=== PATIENT | male | born 1965 | race Caucasian/White ===

== ENCOUNTER 2018-07-08 08:57 | Outpatient (CLI) | payer OTHER, SELFPAY ==
[2018-07-08 10:08] LABS: ALT 52 U/L (12-78); AST 27 U/L (15-37); Albumin 3.9 g/dL (3.4-5.0); Alkaline Phosphatase 61 U/L (46-116); Anion Gap 10.4 mmol/L (3-11); BUN 15 mg/dL (7-18); Bilirubin, Total 0.6 mg/dL (0.2-1.0); CO2 28.6 mmol/L (21.0-32.0); CREATININE 1.19 mg/dL (0.70-1.30); Calcium 8.9 mg/dL (8.5-10.1); Chloride 102 mmol/L (98-107); Glucose 131 mg/dL (70-100); Sodium 141 mmol/L (136-145)
[2018-07-08 10:21] LABS: TSH (W/Ref FT4) 2.92 uIU/mL (0.358-3.74)
== END 2018-07-08 09:17 ==
PROVIDERS: PCP Family Medicine; Visit Provider Family Medicine
DX: R60.9 Edema, unspecified (principal)
CPT/HCPCS: 36415; 80053; 84443

== ENCOUNTER 2018-09-19 09:24 | Emergency (ER) | payer OTHER, SELFPAY ==
[2018-09-19 09:31] VITALS: BP 150/101; PULSE 111; RESP 18; TEMP 36.6; O2SAT 95
[2018-09-19 10:35] LABS: Bilirubin Negative (Negative); Blood Trace-lysed (Negative); Clarity Clear; Glucose Negative (Negative); Ketones Negative (Negative); Leukocyte Esterase Negative (Negative); Nitrite Negative (Negative); Specific Gravity 1.025 (1.005-1.025); Urobilinogen 0.2 EU/dL (Up TO 0.2); pH 5.5 (5-8)
--- NOTE | 2018-09-19 10:41 | DI.CT_ITS ---
SYMPTOMS/DIAGNOSIS: DIFFUSE PAIN, BLEEDING FROM UMBILICUS, S/P FALL ON BELLY, ? ACUTE ABD INJURY CT SCAN OF THE ABDOMEN AND PELVIS: CT scan of the abdomen and pelvis was performed following the uneventful administration of intravenous contrast material. The patient received 50 milligrams of Diphenhydramine one hour prior to examination according to protocol. No acute findings are seen in the lung bases. There is diffuse decreased density of the liver consistent with fatty infiltration. No suspicious hepatic mass is seen. The portal, superior mesenteric and splenic veins are patent. The patient is status post cholecystectomy. There is no biliary ductal dilatation. The pancreas and adrenal glands are unremarkable. The spleen has a normal appearance. Note is made of an accessory spleen. The kidneys show normal and symmetric enhancement. No solid renal mass or obstruction is identified. The urinary bladder is intact. The reproductive organs are unremarkable. The bowel shows no evidence of obstruction or inflammation. There is diverticulosis of the colon but no evidence of acute diverticulitis. No findings to suggest an acute appendicitis are present. The abdominal aorta is of normal caliber. No significant abdominal or pelvic adenopathy, ascites or pneumoperitoneum is present. There is a small fat containing supraumbilical anterior abdominal wall hernia. The umbilicus appears unremarkable. No evidence of an anterior abdominal wall injury is identified. No acute findings are seen in the bones. IMPRESSION: 1. No acute anterior abdominal wall injury. No evidence of an anterior abdominal wall fluid collection or mass. 2. Small fat containing supraumbilical anterior abdominal wall hernia. 3. No evidence of an acute intra-abdominal injury or abnormality. The findings were discussed with the emergency department on the date of the examination.
--- NOTE | 2018-09-19 10:44 | ED.GENADUL_ITS ---
Discharge Plan Disposition Patient Disposition: HOME Condition: Stable Discharge Details Chief Complaint: Abd Prob Clinical Impression: Wound, open, abdominal wall, anterior, Abdominal pain, Fall Primary Care Provider: Brennan Astudillo ED Provider: Julianna Crenshaw Home Meds and New Rx's Prescriptions: No Action hydrochlorothiazide 25 mg tablet 25 mg PO DAILY Qty: 30 RF: 3 losartan 25 mg tablet 25 mg PO DAILY Qty: 60 RF: 3 Discharge Instructions Instructions: Acute Wound Care (ED), Abdominal Pain (ED) Additional Instructions: Keep wounds on her abdomen clean dry and intact. Apply Neosporin to the wounds 1-2 times daily. Alternate Tylenol and Motrin as needed and directed for pain. Follow-up with your primary care doctor in 1 week for wound check. Return immediately to the emergency department any worsening or new concerning symptoms. Discharge Data Discharge Date/Time-TO BE ENTERED AT DEPARTURE: 09/19/18 13:50 Discharge Physician: Julianna Crenshaw Medical Decision Making 52-year-old male who presents with abdominal pain and serous drainage from umbilicus status post 2 falls since yesterday in which he fell directly onto his belly onto the ice. No fever, vomiting, diarrhea. Heart rate tachycardic. Blood pressure hypertensive. Afebrile. Patient appears nontoxic. His abdomen is soft and nontender but he has pain with m ovement and palpation to superficial umbilicus. He has a 0.5 cm skin tear noted near the umbilicus as well as a linear superficial laceration just below the umbilicus. No acute signs of superficial infection. Suspect possibly superficial injury, but will obtain a CT abdomen to assess for abdominal injury. Patient has an allergy to IV dye which causes hives but no respiratory symptoms. Patient states he has received pretreatment with Benadryl in the past. Will place an IV, labs, fluids, IV Benadryl, IV Solu-Medrol. Pretreatment was discussed with radiology. Patient is declining pain medication at this time. 1315 --labs reviewed and unremarkable. CT imaging negative for abscess or other intra-abdominal process. It appears his serous drainage are from superficial skin wound. Patient has abdominal pain with movement and while moving positions, so I suspect it is more musculoskeletal from blunt injury from fall. Tetanus up-to-date 2015. Patient feels much better and is able to tolerate p.o. and is requesting to go home. Patient instructed on wound care to abdominal wound, Motrin and Tylenol, as well as ice. Instructed to follow with primary care doctor for reevaluation and to return here at any time if worse. Medical Records Medical records reviewed: Yes I reviewed the patient's medical records. Imaging Data Radiologic Study: Radiologist's impression: CT SCAN OF THE ABDOMEN AND PELVIS: CT scan of the abdomen and pelvis was performed following the uneventful administration of intravenous contrast material. The patient received 50 milligrams of Diphenhydramine one hour prior to examination according to protocol. No acute findings are seen in the lung bases. There is diffuse decreased density of the liver consistent with fatty infiltration. No suspicious hepatic mass is seen. The portal, superior mesenteric and splenic veins are patent. The patient is status post cholecystectomy. There is no biliary ductal dilatation. The pancreas and adrenal glands are unremarkable. The spleen has a normal appearance. Note is made of an accessory spleen. The kidneys show normal and symmetric enhancement. No solid renal mass or obstruction is identified. The urinary bladder is intact. The reproductive organs are unremarkable. The bowel shows no evidence of obstruction or inflammation. There is diverticulosis of the colon but no evidence of acute diverticulitis. No findings to suggest an acute appendicitis are present. The abdominal aorta is of normal caliber. No significant abdominal or pelvic adenopathy, ascites or pneumoperitoneum is present. There is a small fat containing supraumbilical anterior abdominal wall hernia. The umbilicus appears unremarkable. No evidence of an anterior abdominal wall injury is identified. No acute findings are seen in the bones. IMPRESSION: 1. No acute anterior abdominal wall injury. No evidence of an anterior abdominal wall fluid collection or mass. 2. Small fat containing supraumbilical anterior abdominal wall hernia. 3. No evidence of an acute intra-abdominal injury or abnormality. Lab Data Lab results reviewed: Yes I reviewed the patient's lab results. Laboratory Tests Range/Units 09/19/18 09/19/18 09/19/18 10:28 11:00 11:00 WBC (4.4-10.8) k/cumm 6.36 RBC (4.50-6.00) m/cumm 4.81 Hgb (13.5-17.5) g/dL 15.1 Hct (40.0-50.0) % 43.6 MCV (80-95) fL 90.6 MCH (27.0-33.0) pg 31.4 MCHC (32.0-36.0) g/dL 34.6 RDW (11.8-14.1) % 13.4 Plt Count (130-400) x1000/uL 220 MPV (8.0-11.0) fL 9.9 Immature Gran % 0.6 Neutrophils % 64.8 Lymphocytes % 23.6 Monocytes % 9.9 Eosinophils % 0.8 Basophils % 0.3 Absolute Neutrophils (1.2-6.7) k/cumm 4.12 Absolute Lymphocytes (1.2-3.4) k/cumm 1.50 Absolute Monocytes (0.11-0.7) k/cumm 0.63 Absolute Eosinophils (0.0-0.7) k/cumm 0.05 Absolute Basophils (0.0-0.2) k/cumm 0.02 Sodium (136-145) mmol/L 140 Potassium (3.5-5.1) mmol/L 4.1 Chloride (98-107) mmol/L 101 Carbon Dioxide (21.0-32.0) mmol/L 30.0 Anion Gap (3-11) mmol/L 9.0 BUN (7-18) mg/dL 19 H Creatinine (0.70-1.30) mg/dL 1.16 Estimated GFR/1.73 m2 (mL/min/1.73m2) >= 60.00 Glucose (70-100) mg/dL 119 H Calcium (8.5-10.1) mg/dL 9.0 Total Bilirubin (0.2-1.0) mg/dL 0.4 AST (15-37) U/L 33 ALT (12-78) U/L 65 Alkaline Phosphatase (46-116) U/L 53 Total Protein (6.4-8.2) g/dL 7.5 Albumin (3.4-5.0) g/dL 3.8 Lipase (73-393) U/L 85 Urine Color (Yellow) Yellow Urine Clarity Clear Urine pH (5-8) 5.5 Ur Specific [place] (1.005-1.025) 1.025 Urine Protein (Negative) mg/dL Negative Urine Ketones (Negative) mg/dL Negative Urine Blood (Negative) Trace-lysed H Urine Nitrite (Negative) Negative Urine Bilirubin (Negative) Negative Urine Urobilinogen (Up TO 0.2) EU/dL 0.2 Ur Leukocyte Esterase (Negative) Negative Urine RBC (0-2) 0-2 Urine WBC (0-5) HPF 0-2 Ur Epithelial Cells (Negative) HPF Negative Urine Crystals (Negative) HPF Negative Urine Bacteria (Negative) HPF Rare Urine Casts (Negative) LPF Negative Urine Mucus (Negative) Negative Urine Other (Negative) Negative Ur Culture Indicated? No Urine Glucose (Negative) mg/dL Negative HPI General Mode of arrival: ambulatory . Date/Time Provider Initiated Documentation: 09/19/18 09:43 . Limitations to Documentation: no limitations . Information obtained by: patient . HPI Narrative: Patient is a 52-year-old male presents with abdominal pain and serous drainage from umbilicus status post 2 falls since last night. Patient states he was carrying kerosene last night when he tripped and fell and hit his abdomen directly onto the ice. Patient states he had another fall today in which she fell again directly onto his belly. Patient states since last night's fall, he developed umbilical abdominal pain with clear drainage from the umbilicus which then developed into bloody drainage. Patient states the drainage and belly pain has become worse since second fall this morning. Patient denies any fever, nausea, vomiting, diarrhea or urinary symptoms. He has not taken any medication for pain. Patient has a history of appendectomy, cholecystectomy and hernia repair x2 but states last surgery was 12 years ago. Related Data Home Medications Medication Instructions Recorded Confirmed hydrochlorothiazide 25 mg tablet 25 mg PO DAILY #30 tab 07/08/18 09/19/18 losartan 25 mg tablet 25 mg PO DAILY #60 tab 07/15/18 09/19/18 Previous Rx's Medication Instructions Recorded hydrochlorothiazide 25 mg tablet 25 mg PO DAILY #30 tab 07/08/18 losartan 25 mg tablet 25 mg PO DAILY #60 tab 07/15/18 Allergies Allergy/AdvReac Type Severity Reaction Status Date / Time Iodinated Contrast- Oral and Allergy Hives Verified 09/19/18 10:22 IV Dye promethazine HCl AdvReac locked Verified 09/19/18 10:22 [From Phenergan] jaw General Stated Complaint: Abd Prob LUZ ELENA: 3 Review of Systems Review of Systems All systems reviewed & are unremarkable except as noted in HPI and below Constitutional Reports as per HPI, Denies chills and Denies fever(s) Eyes Denies blurry vision ENT Denies dizziness, Denies sore throat and Denies throat swelling Cardiovascular Denies chest pain and Denies dyspnea Respiratory Denies dyspnea Gastrointestinal Reports abdominal pain, Denies diarrhea and Denies vomiting Genitourinary Denies hematuria and Denies dysuria Musculoskeletal Denies back pain and Denies numbness Integumentary/Breasts Denies lesions and Denies rash Neurologic Denies dizziness and Denies numbness Allergic/Immunologic Denies throat swelling [facility] Medical History HLD (hyperlipidemia) (Chronic 01/19/16) Gastroesophageal reflux disease (Resolved 10/18/17) Essential hypertension (Chronic 12/26/15) Diverticulitis (Resolved 12/26/15) Diverticulitis HTN (hypertension) Hyperlipidemia Surgical History History of appendectomy (Chronic) Cholecystectomy (~2003) Left foot Repair of inguinal hernia Family History Mother No problems noted. Father No problems noted. Sister No problems noted. Sister No problems noted. Brother No problems noted. Brother No problems noted. Brother No problems noted. Social History Smoking/Tobacco Use Status: Former Tobacco Use alcohol intake: current alcohol intake frequency: a few times a week substance use type: does not use Exam Const General: cooperative, healthy appearing and no acute distress HENMT Head: normal to inspection Face and sinus: normal facial exam Eyes General: appearance normal, both eyes and all related structures EOM: EOM intact bilaterally Neck Neck: normal visual inspection and No submandibular swelling Lymphatic: no lymphadenopathy noted Chest Chest: normal inspection of the chest and no tenderness Resp Effort & Inspection: normal respiratory effort and able to speak in complete sentences Auscultation: clear to auscultation bilaterally Cardio Rate: regular rate Rhythm: regular rhythm GI Inspection: normal to inspection Palpation: soft, not firm, no guarding, no hernias, no masses, not rigid and tender periumbilically Auscultation: normal bowel sounds Abdomen image: 1. 0.5 cm skin avulsion with yellowish brown crusted erosion. 2. 3 cm superficial abrasion, no active bleeding. Male General Exam: Yes normal external exam Scrotum: scrotum normal Testes: normal, no testicular swelling and no testicular tenderness Back/Spine/Pelvis Cervical Spine: No cervical spinal tenderness Thoracic/Lumbar Spine: thoracic and lumbar spine normal to inspection, No thoracic spinal tenderness and No lumbar spinal tenderness Skin General skin exam: no rashes or lesions noted Neuro General: alert, awake and oriented x3 Cognition: normal cognition Speech: speech normal Motor: muscle tone normal throughout Sensory Exam: no sensory deficits noted Extrem General: normal to inspection, full ROM and no edema Psych Appearance: grossly normal Mental Status: mental status grossly normal Speech and Movement: speech and movement normal Affect: normal affect Course Vital Signs Temperature 97.9 F 09/19/18 09:31 Pulse 111 H 09/19/18 09:31 Respiratory Rate 18 09/19/18 09:31 Blood Pressure 150/101 H 09/19/18 09:31 Pulse Oximetry 95 09/19/18 09:31 Temperature 97.9 F 09/19/18 09:31 Temperature Source Temporal Artery Scan 09/19/18 09:31 Pulse 111 H 09/19/18 09:31 Respiratory Rate 18 09/19/18 09:31 Respiratory Effort Non-Labored 09/19/18 09:33 Blood Pressure 150/101 H 09/19/18 09:31 Blood Pressure Position Sitting 09/19/18 09:31 Pulse Oximetry 95 09/19/18 09:31 Oxygen Delivery Method Room Air 09/19/18 09:31 Oxygen Flow Rate 0 09/19/18 09:31 Pain Level 6 09/19/18 10:20
[2018-09-19 10:49] LABS: Bacteria Rare HPF (Negative); C & S Indicated? No; Casts Negative LPF (Negative); Crystals Negative HPF (Negative); Epithelial Cells Negative HPF (Negative); Mucus Negative (Negative); Other Cells Negative (Negative); RBC 0-2 (0-2); WBC 0-2 HPF (0-5)
[2018-09-19] MEDS: Normal Saline Flush 10 ML SYR IVP (11:00)
[2018-09-19] MEDS: Normal Saline 1,000 ML 1000 ML IV (11:00)
[2018-09-19 11:13] LABS: Abs Immature Grans 0.04 k/cumm (0.0-0.09); Absolute Basophil Count 0.02 k/cumm (0.0-0.2); Absolute Eosinophil Count 0.05 k/cumm (0.0-0.7); Absolute Monocyte Count 0.63 k/cumm (0.11-0.7); Absolute Neutrophil Count 4.12 k/cumm (1.2-6.7); Basophils % 0.3; Eosinophils % 0.8; HCT 43.6 % (40.0-50.0); HGB 15.1 g/dL (13.5-17.5); Immature Grans % 0.6; Lymphocytes % 23.6; Mean Corp. HGB Concentration 34.6 g/dL (32.0-36.0); Mean Corpuscular Hemoglobin 31.4 pg (27.0-33.0); Mean Corpuscular Volume 90.6 fL (80-95); Mean Platelet Volume 9.9 fL (8.0-11.0); Monocytes % 9.9; Neutrophils % 64.8; Platelet Count 220 x1000/uL (130-400); RBC 4.81 m/cumm (4.50-6.00); RBC Distribution Width 13.4 % (11.8-14.1); White Blood Cell Count 6.36 k/cumm (4.4-10.8)
[2018-09-19] MEDS: methylPREDNISolone SUCC 125 MG VIAL IVP (11:17)
[2018-09-19] MEDS: diphenhydrAMINE 50 MG/ML VIAL IVP (11:18)
[2018-09-19 11:26] LABS: ALT 65 U/L (12-78); AST 33 U/L (15-37); Albumin 3.8 g/dL (3.4-5.0); Alkaline Phosphatase 53 U/L (46-116); BUN 19 mg/dL (7-18); Bilirubin, Total 0.4 mg/dL (0.2-1.0); CREATININE 1.16 mg/dL (0.70-1.30); Chloride 101 mmol/L (98-107); Glucose 119 mg/dL (70-100); Lipase 85 U/L (73-393); Potassium 4.1 mmol/L (3.5-5.1); Sodium 140 mmol/L (136-145); Total Protein 7.5 g/dL (6.4-8.2)
[2018-09-19 12:03] VITALS: BP 138/86; PULSE 96; RESP 16; TEMP 37.1; O2SAT 95
[2018-09-19] MEDS: Ketorolac 30 MG/ML VIAL (12:10)
[2018-09-19] MEDS: Omnipaque 350 MG/ML 100 ML BTL IJ (12:36)
[2018-09-19 13:33] VITALS: BP 142/85; PULSE 87; RESP 16; TEMP 37; O2SAT 94
[2018-09-19] MEDS: Bacitracin 1 PACKET (13:44)
[2018-09-19 13:49] VITALS: BP 142/85; PULSE 87; RESP 16; TEMP 37; O2SAT 94
== END 2018-09-19 13:50 | disposition home or self-care (01) ==
PROVIDERS: Emergency Provider Physician Assistant; PCP Family Medicine
DX: R10.33 Periumbilical pain (principal); S31.115A Laceration without foreign body of abdominal wall, periumbilic region without penetration into peritoneal cavity, initial encounter; W00.0XXA Fall on same level due to ice and snow, initial encounter; I10 Essential (primary) hypertension
CPT/HCPCS: 36415; 80053; 83690; 96361; 96374; 96375; 99285; 74177; 81003; 81015; 85025; J1200; J1885; J2930; J3490

== ENCOUNTER 2019-04-08 15:59 | Emergency (ER) | payer OTHER, SELFPAY ==
[2019-04-08 16:02] VITALS: BP 147/89; PULSE 78; RESP 20; TEMP 36.7; O2SAT 96
--- NOTE | 2019-04-08 16:03 | DI.CT_ITS ---
SYMPTOM/DIAGNOSIS: FALL, PAIN CERVICAL SPINE CT: 04/08 CT examination of the cervical spine was performed utilizing multislice acquisition and multiplanar reconstruction. There is a cervical kyphosis which may indicate muscle spasm. Intervertebral disc spaces are fairly well maintained. No fracture or dislocation. Tracheolaryngeal structures appear intact. The visualized lung apices are clear. No cervical mass or adenopathy. CONCLUSION: No evidence of acute cervical injury. CRANIAL CT: 04/[address] was performed. The ventricular system is normal in appearance. There is no evidence of an intracranial mass lesion. There is no evidence of a subdural or epidural hematoma. No focal areas of decreased attenuation are seen. CONCLUSION: Normal noncontrast Cranial CT.
--- NOTE | 2019-04-08 16:03 | W.ED.GENAD ---
Discharge Plan Disposition Patient Disposition: HOME Condition: Stable Discharge Details Chief Complaint: HeadInjury Clinical Impression: Blunt head injury, Cervical strain, Concussion Primary Care Provider: Brennan Astudillo ED Provider: Robe Juarez Home Meds and New Rx's Prescriptions: New ondansetron 4 mg tablet,disintegrating 4 mg PO Q8H PRN (Reason: nausea and vomiting) Qty: 20 RF: 0 No Action losartan 50 mg tablet 50 mg PO DAILY Qty: 90 RF: 3 multivitamin Tablet 1 tab PO DAILY RF: 0 hydrochlorothiazide 25 mg tablet 25 mg PO DAILY Qty: 90 RF: 3 Discharge Instructions Instructions: Cervical Strain (ED), Concussion (ED) Additional Instructions: you can take 1000mg tylenol and 600mg ibuprofen every 6 hours for pain if pain continues in a week see your primary care provider return to the emergency department for severe worsening pain, persistent vomit, chest pain or abdominal pain or if you feel more ill Medical Decision Making 53 yo male who denies being on blood thinners comes in with headache. He states he was in his chair, leaned back and fell striking posterior head on the floor. Did not have loc but had has increased pain and nausea since along with neck pain. No focal neuro deficits, perrl, cnii-xii are intact and is ambulating with steady agait. HAs right lateral upper neck pain with no midline pain. Suspect concussion and cervical strain but given his headache and nausea along with neck pain will image head and c spine to eval for possible fx/tbi pt's imaging shows no acute findings. Suspect mild concussion, will prescribe zofran and advised f/u with pcp Differential Diagnosis concussion, tbi, cervical strain Imaging Data Radiologic Study: Attestation: I personally reviewed and interpreted this imaging study as follows: Imaging: CT Scan Radiologist's impression: no acute findings on head and cspine HPI General Mode of arrival: ambulatory. Date/Time Provider Initiated Documentation: 04/08/19 15:59. Limitations to Documentation: no limitations. Information obtained by: patient. History of Present Illness 53 year old M presents to the emergency department with the chief complaint of head pain, described as moderate, Quality is described as aching, and is localized to the head. Patient started experiencing this minute(s) (20) and it has been constant. No relieving factors improve symptom(s), No exacerbating factors reported . Patient notes other (nausea, neck pain). Related Data Home Medications Medication Instructions Recorded Confirmed losartan 50 mg tablet 50 mg PO DAILY #90 tab 03/05/19 04/08/19 hydrochlorothiazide 25 mg tablet 25 mg PO DAILY #90 tab 03/27/19 04/08/19 multivitamin 1 tab PO DAILY 04/02/19 04/08/19 ondansetron 4 mg PO Q8H PRN #20 tab 04/08/19 Previous Rx's Medication Instructions Recorded losartan 50 mg tablet 50 mg PO DAILY #90 tab 03/05/19 hydrochlorothiazide 25 mg tablet 25 mg PO DAILY #90 tab 03/27/19 ondansetron 4 mg PO Q8H PRN #20 tab 04/08/19 Allergies Allergy/AdvReac Type Severity Reaction Status Date / Time Iodinated Contrast Media Allergy Hives Verified 04/08/19 16:03 [Iodinated Contrast- Oral and IV Dye] promethazine HCl AdvReac locked Verified 04/08/19 16:03 [From Phenergan] jaw General Stated Complaint: HeadInjury LUZ ELENA: 3 Review of Systems Review of Systems All systems reviewed & are unremarkable except as noted in HPI and below Constitutional Denies chills, Denies fever(s) and Denies weakness Cardiovascular Denies chest pain and Denies dyspnea Respiratory Denies cough and Denies dyspnea Gastrointestinal Denies abdominal pain, Denies nausea and Denies vomiting Musculoskeletal Denies joint swelling Neurologic Denies weakness [facility] Medical History (Updated 03/03/19 @ 11:54 by José Manuel Dent) Diverticulitis Diverticulitis (Resolved 12/26/15) Essential hypertension (Chronic 12/26/15) Gastroesophageal reflux disease (Resolved 10/18/17) HLD (hyperlipidemia) (Chronic 01/19/16) HTN (hypertension) Hyperlipidemia Surgical History (Updated 09/19/18 @ 10:52 by Julianna Crenshaw DO) Cholecystectomy (~2003) History of appendectomy (Chronic) Left foot Repair of inguinal hernia Social History Smoking/Tobacco Use Status: Former Tobacco Use Alcohol Intake: current Alcohol Intake frequency: a few times a week Drug use: Never Substance use type: does not use Do you feel safe in your relationship?: Yes Exam Const General: no acute distress Orientation: alert HENMT Head: normal to inspection Ears: external ears normal General nose exam: external nose normal Mouth: moist mucous membranes Eyes General: appearance normal, both eyes and all related structures Neck Neck: normal visual inspection Resp Effort & Inspection: normal respiratory effort and able to speak in complete sentences Cardio Rate: regular rate Skin General skin exam: no rashes or lesions noted Neuro General: alert and oriented x3 Extrem General: normal to inspection Psych Mental Status: mental status grossly normal Course Vital Signs Temperature 36.7 C 04/08/19 16:02 Pulse 78 04/08/19 16:02 Respiratory Rate 20 04/08/19 16:02 Blood Pressure 147/89 H 04/08/19 16:02 Pulse Oximetry 96 04/08/19 16:02 Temperature 36.7 C 04/08/19 16:02 Temperature Source Temporal Artery Scan 04/08/19 16:02 Pulse 78 04/08/19 16:02 Respiratory Rate 20 04/08/19 16:02 Blood Pressure 147/89 H 04/08/19 16:02 Pulse Oximetry 96 04/08/19 16:02 Oxygen Delivery Method Room Air 04/08/19 16:02 Oxygen Flow Rate 0 04/08/19 16:02 Pain Level 7 04/08/19 16:02
[2019-04-08] MEDS: Ondansetron O.D.T. 4 MG TABEF PO (16:06)
[2019-04-08] MEDS: Acetaminophen 500 MG TAB 1000 MG PO (16:06)
--- NOTE | 2019-04-08 16:39 | DI.VRAD_ITS ---
EXAM: CT Head Without Contrast EXAM DATE/TIME: 04/08/2019 4:04 PM CLINICAL HISTORY: 53 years old, male; Other: Fall, pain TECHNIQUE: Imaging protocol: Computed tomography images of the head without contrast. Coronal and sagittal reformatted images were created and reviewed. Radiation optimization: All CT scans at this facility use at least one of these dose optimization techniques: automated exposure control; mA and/or kV adjustment per patient size (includes targeted exams where dose is matched to clinical indication); or iterative reconstruction. COMPARISON: No relevant prior studies available. FINDINGS: Brain: Normal. No hemorrhage. Unremarkable white matter. No mass effect. Ventricles: Normal. No ventriculomegaly. Bones/joints: Unremarkable. No acute fracture. Sinuses: Visualized sinuses are unremarkable. No fluid levels. Mastoid air cells: Visualized mastoid air cells are well aerated. No mastoid effusion. Soft tissues: Unremarkable. IMPRESSION: No acute intracranial abnormality. EXAM: CT Cervical Spine Without Contrast EXAM DATE/TIME: 04/08/2019 4:04 PM CLINICAL HISTORY: 53 years old, male; Other: Fall, pain TECHNIQUE: Imaging protocol: Computed tomography images of the cervical spine without contrast. Coronal and sagittal reformatted images were created and reviewed. Radiation optimization: All CT scans at this facility use at least one of these dose optimization techniques: automated exposure control; mA and/or kV adjustment per patient size (includes targeted exams where dose is matched to clinical indication); or iterative reconstruction. COMPARISON: No relevant prior studies available. FINDINGS: Vertebrae: No acute fracture. Normal alignment. Discs/Spinal canal/Neural foramina: No spinal stenosis. No neural foraminal narrowing. Soft tissues: Unremarkable. Lungs: Lung apices are normal. IMPRESSION: No acute findings. Dictated and Authenticated by: Gerard Woodall MD. Ordering:ATIF Nagel MD
== END 2019-04-08 17:13 | disposition home or self-care (01) ==
PROVIDERS: Emergency Provider Emergency Medicine; PCP Family Medicine
DX: R51 Headache (principal); S16.1XXA Strain of muscle, fascia and tendon at neck level, initial encounter; S06.0X0A Concussion without loss of consciousness, initial encounter; W07.XXXA Fall from chair, initial encounter; R11.0 Nausea; I10 Essential (primary) hypertension
CPT/HCPCS: 99284; 70450; 72125

== ENCOUNTER 2019-10-28 07:02 | Outpatient (CLI) | payer OTHER, SELFPAY ==
[2019-10-28 08:26] LABS: ALT 64 U/L (16-63); AST 32 U/L (15-37); Albumin 3.7 g/dL (3.4-5.0); Alkaline Phosphatase 63 U/L (46-116); Anion Gap 7.1 mmol/L (3-11); BUN 16 mg/dL (7-18); Bilirubin, Total 0.4 mg/dL (0.2-1.0); CO2 29.9 mmol/L (21.0-32.0); CREATININE 1.11 mg/dL (0.70-1.30); Calcium 8.6 mg/dL (8.5-10.1); Calculated LDL 113 mg/dL (<100); Chloride 107 mmol/L (98-107); Cholesterol 189 mg/dL (<200); Glucose 114 mg/dL (74-106); HDL Cholesterol 42 mg/dL (40-60); Potassium 4.4 mmol/L (3.5-5.1); Sodium 144 mmol/L (136-145); Total Protein 6.7 g/dL (6.4-8.2); Triglyceride 174 mg/dL (<150)
== END 2019-10-28 07:22 ==
PROVIDERS: PCP Family Medicine; Visit Provider Family Medicine
DX: I10 Essential (primary) hypertension (principal)
CPT/HCPCS: 36415; 80053; 80061

== ENCOUNTER 2019-10-30 12:36 | Outpatient (CLI) | payer OTHER, SELFPAY ==
[2019-10-30 13:53] LABS: TSH (W/Ref FT4) 3.03 uIU/mL (0.36-3.74)
== END 2019-10-30 12:56 ==
PROVIDERS: PCP Family Medicine; Visit Provider Family Medicine
DX: R63.5 Abnormal weight gain (principal)
CPT/HCPCS: 36415; 84443

== ENCOUNTER 2020-02-03 22:20 | Outpatient (REF) | payer OTHER, SELFPAY | END 2020-02-03 22:40 | LOC: LBN 22:20 | PROVIDERS: PCP Family Medicine; Visit Provider Internal Medicine | DX: S81.801A Unspecified open wound, right lower leg, initial encounter (principal) | CPT/HCPCS: 87077; 87070; 87186; 87205 ==

== ENCOUNTER 2020-02-12 14:01 | Outpatient (CLI) | payer OTHER, SELFPAY ==
--- NOTE | 2020-02-12 14:51 | DI.RAD_ITS ---
EXAM: XR TIB/FIB RT CLINICAL HISTORY: CELLULITIS OF RT LOWER LIMB, L03.115, R/O OSTEOMYELITIS. TECHNIQUE: 2D digital imaging was performed. COMPARISON: No exams were available for comparison FINDINGS: BONES: No acute fracture is present. No bony destructive lesion is seen. Visualized portion of knee a nd ankle joints are unremarkable. SOFT TISSUE: Subcutaneous edema, greatest around the ankle region. No abnormal gas collection. IMPRESSION: Soft tissue edema. No plain film evidence of osteomyelitis. DATA REPOSITORY: RADIATION DOSE DELIVERED:
== END 2020-02-12 14:21 ==
PROVIDERS: PCP Family Medicine; Visit Provider Family Medicine
DX: L03.115 Cellulitis of right lower limb (principal); M79.89 Other specified soft tissue disorders
CPT/HCPCS: 73590

== ENCOUNTER 2020-03-03 00:20 | Outpatient (CLI) | payer OTHER, SELFPAY ==
--- NOTE | 2020-03-03 07:45 | DI.MRI_ITS ---
EXAM: MR LOWER EXTREMITY RT WO/W CLINICAL HISTORY: R/O osteomyelitis, OPEN LEG WOUND, [id number]. TECHNIQUE: Multiplanar multisequence MRI was performed. Pre and post gadolinium T1 fat-suppressed a xial, coronal and sagittal sequences were performed. 20 milliliters of Dotarem IV. COMPARISON: CR XR TIB/FIB RT from 02/12/2020 FINDINGS: There is marked edema in the subcutaneous fat of the lower leg and around the malleoli. There is n o drainable soft tissue collection. The marrow signal is normal. The muscle signal is normal. IMPRESSION: Soft tissue edema and cellulitis. No evidence of osteomyelitis. DATA REPOSITORY:
[2020-03-03] MEDS: Normal Saline Flush 10 ML SYR IVP (15:44)
[2020-03-03] MEDS: Gadoterate meglumine 20 ML VIAL IVP (15:45)
== END 2020-03-03 00:40 ==
PROVIDERS: PCP Family Medicine; Visit Provider Family Medicine
DX: S81.801A Unspecified open wound, right lower leg, initial encounter (principal); R60.0 Localized edema; L03.115 Cellulitis of right lower limb
CPT/HCPCS: 73720; 82565

== ENCOUNTER 2020-12-14 03:06 | Outpatient (CLI) | payer BC, SELFPAY ==
[2020-12-14 07:30] LABS: HCT 44.2 % (40.0-50.0); HGB 14.7 g/dL (13.5-17.5); MCH 28.7 pg (27.0-33.0); MCHC 33.3 % (32.0-36.0); MCV 86.2 fL (80-95); MPV 10.2 fL (8.0-11.0); Platelet Count 248 10^3/uL (130-400); RBC 5.13 10^6/uL (4.36-5.78); RDW 12.3 % (11.8-14.1); RDW-SD 38.7 fL; WBC 6.86 10^3/uL (4.4-10.8)
[2020-12-14 09:54] LABS: Anion Gap 7.2 mmol/L (3-11); BUN 22 mg/dL (7-18); CO2 29.8 mmol/L (21.0-32.0); CREATININE 1.1 mg/dL (0.70-1.30); Calculated LDL 57 mg/dL (<100); Chloride 109 mmol/L (98-107); Cholesterol 109 mg/dL (<200); Glucose 111 mg/dL (74-106); HDL Cholesterol 31 mg/dL (40-60); Potassium 4.4 mmol/L (3.5-5.1); Sodium 146 mmol/L (136-145); Triglyceride 109 mg/dL (<150)
== END 2020-12-14 03:07 | disposition home or self-care (01) ==
LOC: LBO 03:06
PROVIDERS: Internal Medicine; PCP Family Medicine; Visit Provider Family Medicine
DX: I10 Essential (primary) hypertension (principal); E78.00 Pure hypercholesterolemia, unspecified; L03.115 Cellulitis of right lower limb
CPT/HCPCS: 36415; 80048; 80061; 85027